=== PATIENT | male | born 1960 | race Caucasian/White ===

== ENCOUNTER 2019-10-22 17:52 | Emergency (ER) | payer OTHER ==
[~2019-10-22] VITALS: Ht 170.2 cm; Wt 125.0 kg
--- NOTE | 2019-10-22 18:14 | NUR ---
AT BEDSIDE, SEVERAL FAMILY MEMBERS NOTIFIED OF PATIENT IN ER BY FIDELIATENT AND SPOUSE VIA PHONE.
[2019-10-22] MEDS ORDERED: DILTIAZEM 5 MG/ML, 5ML ONE (18:29)
[2019-10-22] MEDS ORDERED: DILTIAZEM 5 MG/ML, 5ML IVPush ONE (18:30)
[2019-10-22] MEDS ORDERED: PLEASE ENTER ALLERGIES MC SCH (18:30)
--- NOTE | 2019-10-22 18:37 | NUR ---
LAB IN DRAWING PATIENT
[2019-10-22 18:53] LABS: BASOPHILS # (AUTO) 0.12 x10^3/uL (0-0.1); BASOPHILS % (AUTO) 1 % (0-1); EOSINOPHILS # (AUTO) 0.64 x10^3/uL (0-0.4); EOSINOPHILS % (AUTO) 5 % (1-7); LYMPHOCYTES # (AUTO) 1.93 x10^3/uL (1-3.4); LYMPHOCYTES % (AUTO) 14 % (22-44); MD NO; MEAN CORPUSCULAR HEMOGLOBIN 32.2 pg (27.5-34.5); MEAN CORPUSCULAR HGB CONC 33.5 g/dL (33.2-36.2); MEAN PLATELET VOLUME 7.8 fL (7.4-10.4); MONOCYTES # (AUTO) 0.92 x10^3/uL (0.2-0.8); MONOCYTES % (AUTO) 7 % (2-9); NEUTROPHILS # (AUTO) 9.93 x10^3/uL (1.8-6.8); NEUTROPHILS % (AUTO) 73 % (42-75); PLATELET COUNT 310 x10^3/uL (130-400); RED BLOOD COUNT 4.63 x10^6/uL (4.38-5.82); RED CELL DISTRIBUTION WIDTH 13.7 % (9.4-14.8)
[2019-10-22 19:01] LABS: INTERNATIONAL NORMALIZED RATIO 1.2 (0.93-1.1); PROTHROMBIN TIME 12.5 Seconds (9.6-11.5)
[2019-10-22 19:02] LABS: ALANINE AMINOTRANSFERASE 33 U/L (12-78); ALBUMIN 3.8 g/dL (3.4-5.0); ANION GAP 9 mmol/L (5-15); CHLORIDE 103 mmol/L (98-107); CREATININE 1.24 mg/dL (0.7-1.3)
--- NOTE | 2019-10-22 19:03 | NUR ---
PT REPORTS DECREASE IN CHEST PAIN TO 2/10 AFTER DILTIAZEM INJECTION.
[2019-10-22 19:06] LABS: ALKALINE PHOSPHATASE 76 U/L (45-117); BILIRUBIN,TOTAL 0.5 mg/dL (0.2-1.0); TOTAL PROTEIN 8.3 g/dL (6.4-8.2); TROPONIN I < 0.015 ng/mL (0.000-0.045)
--- NOTE | 2019-10-22 19:16 | NUR ---
BREAK RN: PT. RESTING ON GURNEY WITH NO DISTRESS. PT. AWARE OF PLAN FOR POSSIBLE CARDIOVERSION. FAMILY AT FOR SUPPORT. ALL MONITORS IN PLACE. CALL LIGHT IN REACH. ALL SAFETY MEASURES OBSERVED.
--- NOTE | 2019-10-22 19:31 | NUR ---
CODE CART PLACED IN ROOM AND PADS PLACED. MONITOR IN USE.
--- NOTE | 2019-10-22 20:05 | NUR ---
PT WITH PACER PADS ON, HR REMAINS ELEVATED AT 158. WAITING FOR INSTRUCT FROM . PT READY FOR CARDIOVERSION.
[2019-10-22] MEDS ORDERED: ETOMIDATE 20 MG/10 ML ONE (20:09)
[2019-10-22] MEDS ORDERED: AMIODARONE 50 MG/ML, 3ML ONE (20:26)
[2019-10-22] MEDS ORDERED: AMIODARONE 150 MG in DEXTROSE 5% 100 ML IV ONE (20:30)
[2019-10-22] MEDS ORDERED: FILTER 0.22 MICRON IV ONE (21:00)
[2019-10-22] MEDS ORDERED: PROPOFOL 10 MG/ML, 20ML ONE (21:32)
--- NOTE | 2019-10-22 22:01 | NUR ---
cardioversion completed. pt converted to sinus rythm rate of 78. pt now awake, talking on phone with friend, Ella. remains at bedside. vss.
[2019-10-22 23:01] VITALS: BP 113/81
== END 2019-10-22 23:04 | disposition home or self-care (01) ==
LOC: ED 20:59
DX: I48.0 Paroxysmal atrial fibrillation (principal); I49.9 Cardiac arrhythmia, unspecified; J44.9 Chronic obstructive pulmonary disease, unspecified; Z90.49 Acquired absence of other specified parts of digestive tract
CPT/HCPCS: 36415; 71045; 80053; 83735; 83880; 84484; 85025; 85610; 92960; 93005; 96365; 96375; 99284; J0282

== ENCOUNTER 2019-10-24 10:43 | Emergency (ER) | payer OTHER ==
[~2019-10-24] VITALS: Ht 170.2 cm; Wt 122.0 kg
--- NOTE | 2019-10-24 11:02 | NUR ---
PT PRESENTING TO ER FOR AFIB RATE AT 160 STARTING THIS MORNING CAUSING SOB, CP, AND NAUSEA. HX OF AFIB WITH ABLASION 4 YEARS AGO. CARDIOVERTED TUESDAY HERE. CONNECTED TO ALL MONITORING, HR 157. IV PLACED, TO BEDSIDE FOR ASSESSMENT. AWAITING ORDERS AT THIS TIME
[2019-10-24] MEDS ORDERED: PROPOFOL 10 MG/ML, 20ML ONE (11:09)
[2019-10-24] MEDS ORDERED: PROPOFOL 10 MG/ML, 20ML IVPush ONE (11:30)
--- NOTE | 2019-10-24 11:30 | NUR ---
MD BACK AT BEDSIDE TO DISCUSS ADJUSTING MEDS WITH PT AND FAMILY. CONSENT SIGNED, ALL SAFETY IN PLACE FOR CARDIOVERSION.
--- NOTE | 2019-10-24 11:53 | NUR ---
CARDIOVERSION COMPLETE. PT RECOVERING FROM SEDATION NOW. VSS. LEDEZMA. AT BEDSIDE. WILL CONTINUE TO MONITOR
--- NOTE | 2019-10-24 12:12 | NUR ---
REPEAT EKG COMPLETED
--- NOTE | 2019-10-24 12:19 | NUR ---
MD AT BEDSIDE TO RECHECK PT AND UPDATE ON POC. PLAN TO ROAD TEST PT, PO CHALLENGE AND THEN DC.
[2019-10-24 12:32] VITALS: BP 115/72
== END 2019-10-24 12:34 | disposition home or self-care (01) ==
LOC: ED 12:01
DX: I48.0 Paroxysmal atrial fibrillation (principal); J44.9 Chronic obstructive pulmonary disease, unspecified; Z90.89 Acquired absence of other organs
CPT/HCPCS: 92960; 93005; 99291

== ENCOUNTER 2019-12-18 13:46 | Inpatient (IN) | payer BC, OTHER ==
[~2019-12-18] VITALS: Ht 170.2 cm; Wt 128.2 kg
[2019-12-18] MEDS ORDERED: ALBUTEROL/IPRATROPIUM 2.5MG/0.5MG, 3 ML ONE ×2 (14:05→18:08)
[2019-12-18] MEDS ORDERED: DILTIAZEM 5 MG/ML, 5ML ONE ×2 (14:22→18:28)
--- NOTE | 2019-12-18 14:25 | NUR ---
PT ARRIVES VIA EMS, WITH BREATHING TREATMENT AND IV FLUIDS RUNNING. PT WAS AT [facility] WITH C/O DIFFICULTY BREATHING, AND EKG REVEALED SVT. EMS ARRIVED AND PERFORMED EKG WHICH SHOWED AFIB WITH RVR. HR CONTINUES TO BE GREATER THAN 150. PT DENIES CP OR ANY PALPITATIONS. LUNGS HAVE RHONCHI AND EXP WHEEZING THROUGOUT. PT IS A/O X4. PT STATES "I STARTED FEELING SICK ON TUESDAY, SO I WAS TAKING COLD MEDICINE. I FELT BETTER YESTERDAY, BUT WHEN I WOKE UP THIS MORNING, I HAD GREEN PHLEGHM AND IT FELT LIKE IT WAS SPREADING IN MY CHEST. I DECIDED TO GO TO URGENT CARE, AND NOW I'M HERE. I FEEL SO MUCH BETTER AFTER THAT BREATHING TREATMENT". PT MOVED SELF FROM [facility] TO [facility]. PT MOVES ALL EXTREMITIES. PT HAS TACHYCARDIA, BUT DENIES PALPITATIONS. IV PLACED BY EMS INTACT. LAB DRAW PERFORMED VIA UPPER CASER, IV MEDICATIONS STARTED. AT BEDSIDE.
[2019-12-18] MEDS ORDERED: DILTIAZEM 5 MG/ML, 5ML IV ONE (14:30)
[2019-12-18] MEDS ORDERED: SODIUM CHLORIDE FLUSH 10ML SYR IVF ONE (14:30)
[2019-12-18] MEDS ORDERED: ALBUTEROL/IPRATROPIUM 2.5MG/0.5MG, 3 ML NPPB ONE (14:30)
[2019-12-18] MEDS ORDERED: SODIUM CHLORIDE 0.9% 1,000ML IVBOLUS ONE ×2 (14:30→15:30)
--- NOTE | 2019-12-18 14:40 | NUR ---
PT'S HR NOW 100'S-130'S AFIB. CECILIA MUNIZ NOTIFIED. NO NEW ORDERS RECEIVED AT THIS TIME. PT DENIES PAIN/NEEDS AT THIS TIME. PT ON CARDIAC, BP AND O2 MONITORS. AT BEDSIDE. CALL LIGHT WITHIN REACH. WILL CONT TO FLACO PT.
[2019-12-18 14:45] LABS: BASOPHILS # (AUTO) 0.03 x10^3/uL (0-0.1); BASOPHILS % (AUTO) 0 % (0-1); EOSINOPHILS % (AUTO) 0 % (1-7); LYMPHOCYTES # (AUTO) 1.35 x10^3/uL (1-3.4); LYMPHOCYTES % (AUTO) 9 % (22-44); MD NO; MEAN CORPUSCULAR HEMOGLOBIN 31.8 pg (27.5-34.5); MEAN CORPUSCULAR HGB CONC 33.9 g/dL (33.2-36.2); MEAN PLATELET VOLUME 8.1 fL (7.4-10.4); MONOCYTES # (AUTO) 1.21 x10^3/uL (0.2-0.8); MONOCYTES % (AUTO) 8 % (2-9); NEUTROPHILS # (AUTO) 12.04 x10^3/uL (1.8-6.8); NEUTROPHILS % (AUTO) 82 % (42-75); PLATELET COUNT 211 x10^3/uL (130-400); RED BLOOD COUNT 5.15 x10^6/uL (4.38-5.82); RED CELL DISTRIBUTION WIDTH 13.9 % (9.4-14.8)
[2019-12-18 14:54] LABS: ALANINE AMINOTRANSFERASE 30 U/L (12-78); ANION GAP 11 mmol/L (5-15); CALCIUM 8.4 mg/dL (8.5-10.1); CHLORIDE 112 mmol/L (98-107); CREATININE 1.14 mg/dL (0.7-1.3)
[2019-12-18 14:59] LABS: ALKALINE PHOSPHATASE 67 U/L (45-117); BILIRUBIN,TOTAL 0.2 mg/dL (0.2-1.0); TOTAL PROTEIN 7.2 g/dL (6.4-8.2); TROPONIN I 0.034 ng/mL (0.000-0.045)
[2019-12-18] MEDS ORDERED: PIPERACILLIN/TAZO/PMX 3.375GM 50 ML ONE (15:19)
[2019-12-18] MEDS ORDERED: ONDANSETRON 2MG/ML, 2ML ONE (15:28)
[2019-12-18] MEDS ORDERED: PIPERACILLIN/TAZO/PMX 3.375GM 50 ML IV ONE (15:30)
[2019-12-18] MEDS ORDERED: MAGNESIUM SULFATE PMX 2GM/50ML 50 ML IV ONE (15:30)
[2019-12-18] MEDS ORDERED: DILTIAZEM 125 MG in SODIUM CHLORIDE 0.9% 100 ML IV SCH ×2 (15:30→23:00)
[2019-12-18] MEDS ORDERED: MAGNESIUM SULFATE PMX 2GM/50ML 50 ML ONE (16:00)
[2019-12-18] MEDS ORDERED: ONDANSETRON ODT 4 MG PO PRN (16:00)
[2019-12-18] MEDS ORDERED: hydrALAzine 20 MG/ML, 1ML IVPush PRN (16:00)
[2019-12-18] MEDS ORDERED: morphine SULFATE 10 MG/ML, 1ML IVPush PRN (16:00)
[2019-12-18] MEDS ORDERED: ONDANSETRON 2MG/ML, 2ML IVPush PRN (16:00)
[2019-12-18] MEDS ORDERED: CALCIUM GLUCONATE 0.46MEQ/1ML IVPush ONE (16:00)
[2019-12-18] MEDS ORDERED: RIVAROXABAN 20 MG TABLET ONE (16:00)
[2019-12-18] MEDS ORDERED: VANCOMYCIN PER PHARMACY MC PRN (16:00)
[2019-12-18] MEDS ORDERED: ACETAMINOPHEN 325 MG TABLET PO PRN (16:00)
--- NOTE | 2019-12-18 16:00 | NUR ---
PT'S BP WAS NOTED TO BE 80'S/40'S. PT BLOOD PRESSURE CUFF REPOSITIONED AND RETAKEN, BP 106/64. PER ERMMona MUNIZ AND ADMITTING MD ALATORRE AWARE. PT GIVEN SECOND LITER BOLUS AND CARDIZEM DRIP HELD PER CRISTY AND LANDRY ORDER. AMIODARONE DRIP REQUESTED. PT VERBALIZES UNDERSTANDING OF POC. PT AO X 4. SKIN PWD. RESP EVEN AND UNLABORED. PT AFIB 110'S-140'S. AT BEDSIDE. CALL LIGHT WITHIN REACH. WILL CONT TO MONITOR PT.
[2019-12-18 16:19] LABS: INTERNATIONAL NORMALIZED RATIO 1.04 (0.93-1.1)
[2019-12-18] MEDS: RIVAROXABAN 20 MG TABLET PO SCH (16:25)
--- NOTE | 2019-12-18 16:46 | NUR ---
ADMIODARONE DRIP RECEIVED. AWAITING MICRON FILTER FROM PHARMACY. PT AO X 4. SKIN PWD. RESP EVEN AND UNLABORED. PT AWARE THAT WE ARE WAITING FOR ADMISSION. CALL LIGHT WITHIN REACH. WILL CONT TO MONITOR PT.
[2019-12-18] MEDS: ALBUTEROL SULFATE 2.5 MG/3 ML NPPB SCH ×2 (17:00→23:00)
[2019-12-18] MEDS: AMIODARONE 450 MG in DEXTROSE 5% 241 ML IV PRN (17:30)
[2019-12-18] MEDS: FILTER 0.22 MICRON FOR AMIODARONE IV PRN (17:30)
--- NOTE | 2019-12-18 17:30 | NUR ---
PT CURRENTLY RESTING ON GURNEY. AMIODARONE DRIP STARTED. PT HAS MAINTAINED BP OF SBP OF 100'S FOR 60 MIN, WILL ORDER CARDIAC TRAY. PT AO X 4. SKIN PWD. RESP EVEN AND UNLABORED. PT A-FIB 120'S-150'S. PT ON CONT BP, CARDIAC AND O2 MONITORS. CALL LIGHT WITHIN REACH. WILL CONT TO MONITOR PT.
--- NOTE | 2019-12-18 18:12 | NUR ---
PT UP TO RESTROOM. STEADY UPON AMBULATION TO AND FROM RESTROOM. PT MOVED FROM [place] TO HOSPITAL BED. PT AWARE WE ARE WAITING FOR ADMISSION. NO ACUTE DISTRESS NOTED AT THIS TIME. PT ON CONT BP, CARDIAC AND O2 MONITORS. AT BEDSIDE. PT DENIES PAIN/NEEDS AT THIS TIME. CALL LIGHT WITHIN REACH. WILL CONT TO MONITOR PT.
--- NOTE | 2019-12-18 18:25 | NUR ---
PT'S HR NOW 160'S AFIB. DISCUSSED WITH NIGHT [facility] JOSE MANUEL TRAN. PT TO BE GIVEN ONE TIME DOSE OF DILTIAZEM. VERIFIED IT IS OKAY TO GIVE WITH AMIODARONE DRIP WITH JOSE MANUEL SEVERINO.
[2019-12-18] MEDS ORDERED: DILTIAZEM 5 MG/ML, 5ML IVPush ONE (18:30)
--- NOTE | 2019-12-18 18:48 | NUR ---
NO CHANGE TO RATE AT THIS TIME. PT AFIB 150'S-180'S. JOSE MANUEL SEVERINO NOTIFIED. WE ARE TO WAIT AND WATCH PT. PT HAS RECENTLY HAD BREATHING TRX. PT DENIES CP OR SOB AT THIS TIME. PT AO X 4. SKIN PINK AND WARM. FOREHEAD SLIGHTLY DIAPHORETIC. PT ON CONT BP,CARDIAC AND O2 MONITORS. CALL LIGHT WITHIN REACH. WILL CONT TO MONITOR PT.
--- NOTE | 2019-12-18 19:01 | NUR ---
BREAK RN: PT RESTING IN ROOM, NADN. HR STILL RANGING BETWEEN 170-180, HOSPITALIST AWARE. CALL LIGHT WITHIN REACH. AWAITING FURTHER INSTRUCTION.
--- NOTE | 2019-12-18 20:13 | NUR ---
REPORT TO ROB JIMENEZ ON TELE. PT'S HR 140'S-160'S AFIB ON SENIOR VALIDATION ENGINEER. JOSE MANUEL SEVERINO NOTIFIED. NO NEW ORDERS RECEIVED AT THIS TIME. PER JOSE MANUEL SEVERINO PT IS CLEARED TO GO TO CARDIAC TELEMETRY FLOOR AT THIS TIME.
[2019-12-18] MEDS ORDERED: PHARMACOKINETIC MONITORING MC PRN (20:30)
[2019-12-18 20:49] VITALS: BP 100/66
[2019-12-18 20:50] VITALS: BP 100/66
[2019-12-18] MEDS: BUDESONIDE 0.5 MG/2 ML INHA NPPB SCH (21:00)
[2019-12-18] MEDS: VANCOMYCIN 1,800 MG in SODIUM CHLORIDE 0.9% 250 ML IV SCH (21:54)
[2019-12-18 22:18] LABS: TROPONIN I < 0.015 ng/mL (0.000-0.045)
[2019-12-18 22:46] VITALS: BP 113/80
[2019-12-18 23:55] LABS: RAPID INFLUENZA A Negative (Negative); RAPID INFLUENZA B Negative (Negative)
[2019-12-19 00:16] LABS: MICROSCOPIC NOT IND
[2019-12-19 00:23] LABS: CULTURE INDICATED? NO
[2019-12-19] MEDS: PIPERACILLIN/TAZO/PMX 4.5GM 100 ML IV SCH ×4 (01:23→20:43)
[2019-12-19] MEDS: AMIODARONE 450 MG in DEXTROSE 5% 241 ML IV PRN ×2 (01:27→14:39)
[2019-12-19 01:33] VITALS: BP 123/72
[2019-12-19] MEDS ORDERED: DILTIAZEM 125 MG in SODIUM CHLORIDE 0.9% 100 ML IV SCH ×4 (03:00→23:00)
[2019-12-19 03:30] LABS: BASOPHILS # (AUTO) 0.04 x10^3/uL (0-0.1); BASOPHILS % (AUTO) 0 % (0-1); EOSINOPHILS # (AUTO) 0.02 x10^3/uL (0-0.4); EOSINOPHILS % (AUTO) 0 % (1-7); LYMPHOCYTES # (AUTO) 0.98 x10^3/uL (1-3.4); LYMPHOCYTES % (AUTO) 8 % (22-44); MD NO; MEAN CORPUSCULAR HEMOGLOBIN 31.7 pg (27.5-34.5); MEAN CORPUSCULAR VOLUME 93.4 fL (81-97); MEAN PLATELET VOLUME 7.7 fL (7.4-10.4); MONOCYTES # (AUTO) 0.87 x10^3/uL (0.2-0.8); MONOCYTES % (AUTO) 7 % (2-9); NEUTROPHILS # (AUTO) 9.83 x10^3/uL (1.8-6.8); NEUTROPHILS % (AUTO) 84 % (42-75); PLATELET COUNT 210 x10^3/uL (130-400); RED CELL DISTRIBUTION WIDTH 13.8 % (9.4-14.8)
[2019-12-19 03:39] LABS: ANION GAP 6 mmol/L (5-15); CALCIUM 8.2 mg/dL (8.5-10.1); CHLORIDE 112 mmol/L (98-107); CREATININE 1.06 mg/dL (0.7-1.3)
[2019-12-19 03:43] LABS: TROPONIN I < 0.015 ng/mL (0.000-0.045)
[2019-12-19] MEDS: ALBUTEROL SULFATE 2.5 MG/3 ML NPPB SCH ×2 (05:00→07:05)
[2019-12-19] MEDS ORDERED: FLU VACC QS2019-20 36MOS UP/PF 0.5 ML IM-VACC ONE (05:30)
[2019-12-19] MEDS: BUDESONIDE 0.5 MG/2 ML INHA NPPB SCH ×2 (07:05→20:23)
[2019-12-19] MEDS ORDERED: predniSONE 50MG TABLET PO SCH (08:00)
[2019-12-19 08:03] VITALS: BP 129/79
[2019-12-19] MEDS: VANCOMYCIN 1,800 MG in SODIUM CHLORIDE 0.9% 250 ML IV SCH ×2 (08:50→21:37)
[2019-12-19] MEDS ORDERED: METOPROLOL TARTRATE 25 MG TAB PO SCH (13:00)
[2019-12-19 13:09] VITALS: BP 152/99
[2019-12-19] MEDS: FILTER 0.22 MICRON FOR AMIODARONE IV PRN (14:40)
[2019-12-19 14:48] VITALS: BP 128/85
[2019-12-19] MEDS ORDERED: DILTIAZEM 60 MG CAP.ER.12H ONE (18:14)
[2019-12-19] MEDS ORDERED: DILTIAZEM 60 MG CAP.ER.12H PO SCH (18:15)
[2019-12-19] MEDS: RIVAROXABAN 20 MG TABLET PO SCH (18:16)
[2019-12-19] MEDS: METOPROLOL TARTRATE 25 MG TAB PO SCH (18:16)
[2019-12-19] MEDS: DILTIAZEM 60 MG TABLET PO SCH (18:20)
[2019-12-19 19:25] VITALS: BP 130/97
[2019-12-20 01:08] VITALS: BP 145/76
[2019-12-20] MEDS: METOPROLOL TARTRATE 25 MG TAB PO SCH ×4 (01:38→20:41)
[2019-12-20] MEDS: PIPERACILLIN/TAZO/PMX 4.5GM 100 ML IV SCH ×4 (01:39→20:40)
[2019-12-20] MEDS: DILTIAZEM 60 MG TABLET PO SCH ×2 (06:16→11:30)
[2019-12-20 07:03] VITALS: BP 134/86
[2019-12-20] MEDS: BUDESONIDE 0.5 MG/2 ML INHA NPPB SCH ×2 (08:41→20:04)
[2019-12-20] MEDS ORDERED: AMIODARONE 200 MG TABLET PO SCH (09:00)
[2019-12-20] MEDS: VANCOMYCIN 1,800 MG in SODIUM CHLORIDE 0.9% 250 ML IV SCH (09:51)
[2019-12-20] MEDS ORDERED: NITROGLYCERIN 0.4 MG BOTTLE (25 TABS) SL PRN (10:30)
[2019-12-20] MEDS ORDERED: NITROGLYCERIN 0.4 MG/SPRAY SL PRN (10:30)
[2019-12-20 12:06] VITALS: BP 117/74
[2019-12-20] MEDS: ALBUTEROL/IPRATROPIUM 2.5MG/0.5MG, 3 ML NPPB PRN ×2 (12:07→20:04)
[2019-12-20] MEDS: MORPHINE SULFATE 4 MG/ML, 1ML IVPush PRN ×2 (12:54→21:43)
[2019-12-20 14:03] LABS: TROPONIN I 0.015 ng/mL (0.000-0.045)
[2019-12-20] MEDS ORDERED: DILTIAZEM 5 MG/ML, 5ML IVPush PRN (16:00)
[2019-12-20] MEDS: RIVAROXABAN 20 MG TABLET PO SCH (16:50)
[2019-12-20] MEDS: LACTOBACILLUS CHEW TABLET PO SCH ×2 (16:50→20:41)
[2019-12-20 19:43] LABS: TROPONIN I < 0.015 ng/mL (0.000-0.045)
[2019-12-20 19:44] VITALS: BP 118/80
[2019-12-20 20:37] VITALS: BP 113/80
[2019-12-21 01:38] VITALS: BP 100/67
[2019-12-21 01:49] LABS: BASOPHILS # (AUTO) 0.05 x10^3/uL (0-0.1); BASOPHILS % (AUTO) 1 % (0-1); EOSINOPHILS % (AUTO) 1 % (1-7); LYMPHOCYTES # (AUTO) 2.11 x10^3/uL (1-3.4); LYMPHOCYTES % (AUTO) 20 % (22-44); MD NO; MEAN CORPUSCULAR HEMOGLOBIN 31.9 pg (27.5-34.5); MEAN CORPUSCULAR HGB CONC 33.9 g/dL (33.2-36.2); MEAN CORPUSCULAR VOLUME 93.9 fL (81-97); MEAN PLATELET VOLUME 7.8 fL (7.4-10.4); MONOCYTES # (AUTO) 0.96 x10^3/uL (0.2-0.8); MONOCYTES % (AUTO) 9 % (2-9); NEUTROPHILS # (AUTO) 7.39 x10^3/uL (1.8-6.8); NEUTROPHILS % (AUTO) 70 % (42-75); PLATELET COUNT 207 x10^3/uL (130-400); RED BLOOD COUNT 4.23 x10^6/uL (4.38-5.82); RED CELL DISTRIBUTION WIDTH 13.9 % (9.4-14.8)
[2019-12-21 01:58] LABS: ANION GAP 6 mmol/L (5-15); CALCIUM 7.9 mg/dL (8.5-10.1); CHLORIDE 108 mmol/L (98-107); CREATININE 1.07 mg/dL (0.7-1.3)
[2019-12-21 02:02] LABS: TROPONIN I < 0.015 ng/mL (0.000-0.045)
[2019-12-21] MEDS: PIPERACILLIN/TAZO/PMX 4.5GM 100 ML IV SCH ×3 (02:18→13:57)
[2019-12-21 08:02] VITALS: BP 137/84
[2019-12-21] MEDS: METOPROLOL TARTRATE 25 MG TAB PO SCH (08:03)
[2019-12-21] MEDS: LACTOBACILLUS CHEW TABLET PO SCH ×2 (08:03→17:04)
[2019-12-21] MEDS: BUDESONIDE 0.5 MG/2 ML INHA NPPB SCH (09:14)
[2019-12-21] MEDS: ALBUTEROL/IPRATROPIUM 2.5MG/0.5MG, 3 ML NPPB PRN (09:14)
[2019-12-21 13:53] VITALS: BP 125/84
[2019-12-21] MEDS: RIVAROXABAN 20 MG TABLET PO SCH (17:03)
[2019-12-21] MEDS ORDERED: LEVA15HF4 INH (18:08)
[2019-12-21] MEDS ORDERED: RIVA20TA PO (18:08)
[2019-12-21] MEDS ORDERED: METO25TA35 PO (18:08)
[2019-12-21] MEDS ORDERED: ACID1TAB7 PO (18:08)
[2019-12-21] MEDS ORDERED: AMOX1TAB12 PO (18:08)
[2019-12-21] MEDS ORDERED: PRED10TA PO (18:08)
[2019-12-21] MEDS ORDERED: LACTOBACILLUS CHEW TABLET PO SCH (21:00)
[2019-12-21] MEDS ORDERED: AMOXICILLIN/CLAV 875-125MG TABLET PO SCH (21:00)
== END 2019-12-21 18:52 | disposition home or self-care (01) | DRG 871 ==
LOC: SUATTDRO 15:17 → ED 15:22 → EDIP 15:23 → ED 15:27 → 5SO 20:19
PROVIDERS: ADMIT Hospitalist; ATTEND Internal Medicine
DX: A41.9 Sepsis, unspecified organism (principal); J18.0 Bronchopneumonia, unspecified organism; D68.69 Other thrombophilia; J44.0 Chronic obstructive pulmonary disease with (acute) lower respiratory infection; J44.1 Chronic obstructive pulmonary disease with (acute) exacerbation; E83.42 Hypomagnesemia; G47.33 Obstructive sleep apnea (adult) (pediatric); I10 Essential (primary) hypertension; I48.0 Paroxysmal atrial fibrillation; Y95 Nosocomial condition; Z79.01 Long term (current) use of anticoagulants; Z79.899 Other long term (current) drug therapy; Z80.8 Family history of malignant neoplasm of other organs or systems
CPT/HCPCS: 36415; 87400; 96361; 96365; 96366; 96368; 96375; 99291; C8929; J7613; J7620; J7626; 71045; 80048; 80053; 81003; 83605; 83735; 83880; 84443; 84484; 85025; 85610; 87040; 90686; 93005; 94640; G0378; J2543; J3370; J7060; Q9957; J0282; J2270; J3475; J7030; J7050; J7512

== ENCOUNTER → 2021-04-24 | Outpatient (CLI) | payer BC ==
[~2021-04-24] MED LIST: ACID1TAB7 PO; AMOX1TAB12 PO; LEVA15HF4 INH; METO25TA35 PO; PRED10TA PO; RIVA20TA PO
== END | disposition home or self-care (01) ==
LOC: CFH 08:05
PROVIDERS: ATTEND Family Medicine
DX: R10.11 Right upper quadrant pain (principal)
CPT/HCPCS: 76700

== ENCOUNTER 2021-05-04 14:16 | Emergency (ER) | payer BC ==
[~2021-05-04] VITALS: Ht 170.2 cm; Wt 128.9 kg
--- NOTE | 2021-05-04 14:29 | NUR ---
EKG DONE IN TRIAGE.
--- NOTE | 2021-05-04 14:41 | NUR ---
1441: First contact, Pt on monitor, IV started bloods drawn and sent. Pt states cp and sob when working out. Abd pain and swelling. NSR no ectopy
--- NOTE | 2021-05-04 15:25 | NUR ---
ERP at bedside for evaluation. Pt remains stable, no cp now, RR unlabored appears comfortable. Pt says his "main issue" is the pain in stomach worried may be his pancreas. Waiting for further orders. AIDET provided.
--- NOTE | 2021-05-04 15:38 | NUR ---
PCXR done. Pt remains stable. No cp no sob now.
[2021-05-04 15:53] LABS: BASOPHILS % (AUTO) 1 % (0-1); EOSINOPHILS % (AUTO) 2 % (1-7); LYMPHOCYTES % (AUTO) 20 % (22-44); MEAN CORPUSCULAR HEMOGLOBIN 32.4 pg (27.5-34.5); MONOCYTES % (AUTO) 9 % (2-9); NEUTROPHILS % (AUTO) 68 % (42-75); PLATELET COUNT 274 x10^3/uL (130-400); RED BLOOD COUNT 4.73 x10^6/uL (4.38-5.82)
[2021-05-04] MEDS ORDERED: SODIUM CHLORIDE FLUSH 10ML SYR IVF ONE (16:00)
[2021-05-04 16:05] LABS: ALANINE AMINOTRANSFERASE 26 U/L (12-78); ALBUMIN 3.7 g/dL (3.4-5.0); ANION GAP 8 mmol/L (5-15); CALCIUM 8.8 mg/dL (8.5-10.1); CHLORIDE 106 mmol/L (98-107); CREATININE 1.29 mg/dL (0.7-1.3)
--- NOTE | 2021-05-04 16:05 | NUR ---
No change in assessment, remains stable. AIDET updated re: LOS and POC.
[2021-05-04 16:09] LABS: ALKALINE PHOSPHATASE 75 U/L (45-117); BILIRUBIN,TOTAL 0.5 mg/dL (0.2-1.0); TOTAL PROTEIN 7.8 g/dL (6.4-8.2); TROPONIN I < 0.015 ng/mL (0.000-0.045)
--- NOTE | 2021-05-04 16:45 | NUR ---
POC updated Re: CT.
--- NOTE | 2021-05-04 17:37 | NUR ---
Per chemistry quality control technician they are "backed up", this leader writer updated pt and re: delay and POC/LOS. AIDET
--- NOTE | 2021-05-04 18:20 | NUR ---
To CT via [facility].
[2021-05-04] MEDS ORDERED: OMNIPAQUE 350 MG/ML, 100ML BOTTLE ONE (18:38)
--- NOTE | 2021-05-04 18:42 | NUR ---
Back from CT, updated on POC/LOS.
[2021-05-04] MEDS ORDERED: MAALOX/HYOSCYAMINE/LIDOCAINE 45 ML BTL PO ONE (20:00)
[2021-05-04] MEDS ORDERED: MAALOX/HYOSCYAMINE/LIDOCAINE 45 ML BTL ONE (20:02)
[2021-05-04 20:05] VITALS: BP 124/68
--- NOTE | 2021-05-04 20:05 | NUR ---
Medicated per order with gi cocktail, vss remains stable nsr rate 78.
--- NOTE | 2021-05-04 20:30 | NUR ---
IV dc cath intact, pt dc home with instruct and rx. Pt and verbalize understanding.
== END 2021-05-04 20:31 | disposition home or self-care (01) ==
LOC: ED 14:50
DX: K29.00 Acute gastritis without bleeding (principal); R07.89 Other chest pain; J44.9 Chronic obstructive pulmonary disease, unspecified; I48.91 Unspecified atrial fibrillation
CPT/HCPCS: 36415; 71045; 74177; 80053; 83690; 84484; 85025; 93005; 99285; Q9967

== ENCOUNTER → 2021-05-27 | Outpatient (CLI) | payer BC ==
[~2021-05-27] MED LIST changes: +REGADENOSON 0.4 MG/5 ML SYRINGE ONE; +SINCALIDE (KINEVAC) 5 MCG ONE
== END | disposition home or self-care (01) ==
LOC: RAD 10:46
PROVIDERS: ATTEND Family Medicine
DX: K82.8 Other specified diseases of gallbladder (principal)
CPT/HCPCS: 78227; A9537; J2805; J2785

== ENCOUNTER 2021-06-23 15:28 | Outpatient (CLI) | payer BC ==
[~2021-06-23 15:28] MED LIST changes: -REGADENOSON 0.4 MG/5 ML SYRINGE ONE; -SINCALIDE (KINEVAC) 5 MCG ONE
[2021-06-23] MEDS ORDERED: FURO40TA6 PO (16:02)
[2021-06-23] MEDS ORDERED: RIVA20TA PO (16:02)
[2021-06-23] MEDS ORDERED: SPIR25TA5 PO (16:02)
[2021-06-23] MEDS ORDERED: METO-264 PO (16:02)
[2021-06-23] MEDS ORDERED: BUDE10.2 PO (16:14)
[2021-06-23] MEDS ORDERED: LEVA15HF4 INH (16:14)
== END 2021-06-23 23:59 | disposition home or self-care (01) ==
LOC: STAR 15:28
PROVIDERS: ATTEND Surgery
DX: Z02.9 Encounter for administrative examinations, unspecified (principal)

== ENCOUNTER 2021-07-20 12:18 | Day surgery (SDC) | payer BC ==
[~2021-07-20] VITALS: Ht 170.2 cm; Wt 125.8 kg
[~2021-07-20 12:18] MED LIST changes: +BUDE10.2 PO; +FURO40TA6 PO; +METO-264 PO; +SPIR25TA5 PO
[2021-07-20 12:42] VITALS: BP 108/71
[2021-07-20] MEDS ORDERED: INDOCYANINE GREEN 25 MG VIAL ONE (12:51)
[2021-07-20] MEDS ORDERED: CHLORHEXIDINE 15 ML UDC ONE (12:52)
[2021-07-20] MEDS ORDERED: LACTATED RINGERS 1,000 ML IV SCH (13:00)
[2021-07-20] MEDS ORDERED: CHLORHEXIDINE 15 ML UDC PO ONE (13:00)
[2021-07-20] MEDS ORDERED: INDOCYANINE GREEN 25 MG VIAL IVPush ONE (13:00)
[2021-07-20] MEDS ORDERED: EPINEPHRINE 1 MG/ML, 1ML ONE (13:01)
[2021-07-20] MEDS ORDERED: BUPIVACAINE/PF 0.5% ONE (13:01)
[2021-07-20] MEDS ORDERED: MIDAZOLAM 1 MG/ML, 2ML ONE (13:08)
[2021-07-20] MEDS ORDERED: FENTANYL PF 250 MCG/5ML ONE (13:08)
[2021-07-20] MEDS ORDERED: GLYCOPYRROLATE 0.2MG/1ML, 5ML ONE (13:09)
[2021-07-20] MEDS ORDERED: ROCURONIUM 10MG/ML,5ML ONE (13:09)
[2021-07-20] MEDS ORDERED: CEFOTETAN 2 GM ONE (13:09)
[2021-07-20] MEDS ORDERED: NEOSTIGMINE 1 MG/ML, 10ML ONE (13:09)
[2021-07-20] MEDS ORDERED: PROPOFOL 10 MG/ML, 20ML ONE (13:09)
[2021-07-20] MEDS ORDERED: MEPERIDINE/PF 25MG/0.5ML IVPush PRN (13:30)
[2021-07-20] MEDS ORDERED: ONDANSETRON 2MG/ML, 2ML IVPush PRN (13:30)
[2021-07-20] MEDS ORDERED: hydrALAzine 20 MG/ML, 1ML IV PRN (13:30)
[2021-07-20] MEDS ORDERED: HYDROmorphone 1 MG/ML, 1ML INJ IVPush PRN (13:30)
[2021-07-20] MEDS ORDERED: morphine SULFATE 10 MG/ML, 1ML IVPush PRN (13:30)
[2021-07-20] MEDS ORDERED: ACETAMINOPHEN 325 MG TABLET PO PRN (13:30)
[2021-07-20] MEDS ORDERED: LABETALOL 5MG/ML, 20ML IV PRN (13:30)
[2021-07-20] MEDS ORDERED: OXYcodone 5 MG/5 ML ORAL.SOL UDC PO PRN (13:30)
[2021-07-20] MEDS ORDERED: KETOROLAC 30 MG/1 ML ONE (14:05)
[2021-07-20] MEDS ORDERED: OXYcodone 5 MG/5 ML ORAL.SOL UDC ONE ×2 (14:25→14:28)
[2021-07-20] MEDS ORDERED: ACETAMINOPHEN 650 MG/20.3 ML UDC ONE (14:25)
[2021-07-20] MEDS ORDERED: FENTANYL PF 100 MCG/2ML ONE (14:25)
[2021-07-20] MEDS: FENTANYL PF 100 MCG/2ML IV PRN ×2 (14:32→14:40)
[2021-07-20] MEDS ORDERED: ONDANSETRON 2MG/ML, 2ML ONE (14:46)
[2021-07-20] MEDS ORDERED: PROMETHAZINE 25 MG/ML, 1ML ONE (15:11)
[2021-07-20] MEDS ORDERED: PROMETHAZINE 25 MG/ML, 1ML IVPush PRN (15:30)
== END 2021-07-20 17:30 | disposition home or self-care (01) ==
LOC: OUT 12:18
PROVIDERS: ATTEND Surgery
DX: K82.8 Other specified diseases of gallbladder (principal); K81.1 Chronic cholecystitis; J44.9 Chronic obstructive pulmonary disease, unspecified; G47.33 Obstructive sleep apnea (adult) (pediatric); I48.91 Unspecified atrial fibrillation; Z20.822 Contact with and (suspected) exposure to COVID-19; Z79.01 Long term (current) use of anticoagulants; Z79.899 Other long term (current) drug therapy
CPT/HCPCS: 47562; 87635; 88304; J0171; J1885; J2250; J2405; J2550; J2704; J2710; J3010; J7120